=== PATIENT | male | born 1995 | race Caucasian/White ===

== ENCOUNTER 2024-04-28 22:54 | Emergency (ER) | payer MEDICAID ==
[~2024-04-28] VITALS: Ht 182.9 cm; Wt 63.5 kg
[2024-04-28 23:03] VITALS: BP 105/66; PULSE 96; RESP 20; TEMP 99.1; O2SAT 99
[2024-04-29 00:15] LABS: BASOPHILS % (AUTO) 0.3 % (0.0-2.0); HEMATOCRIT 44.9 % (36-52); HEMOGLOBIN 15.6 g/dL (12.0-18.0); LYMPHOCYTES # (AUTO) 0.8 K/uL (2.0-11.5); LYMPHOCYTES % (AUTO) 6.7 % (20.5-51.1); MEAN CORPUSCULAR HEMOGLOBIN 32 pg (27-31); MEAN CORPUSCULAR HGB CONC 35 g/dL (33-37); MEAN CORPUSCULAR VOLUME 90.4 fL (80-94); MONOCYTES # (AUTO) 0.6 K/uL (0.8-1.0); MONOCYTES % (AUTO) 5.1 % (1.7-9.3); NEUTROPHILS # (AUTO) 10.8 K/uL (1.8-7.7); NEUTROPHILS % (AUTO) 87.9 % (42.2-75.2); PLATELET COUNT (AUTO) 220 K/uL (140-450); RED BLOOD CELL COUNT(AUTO) 4.97 MIL/uL (4.20-6.10); RED CELL DISTRIBUTION WIDTH 12.9 % (11.6-13.7); WHITE BLOOD COUNT (AUTO) 12.3 K/uL (4.8-10.8)
[2024-04-29] MEDS: NACL 0.9% 2,000 ML IV ONE (00:18)
[2024-04-29] MEDS: ONDANSETRON 4 MG/2 ML VIAL IVP ONE (00:24)
[2024-04-29 00:31] LABS: ALBUMIN 4.5 g/dL (3.4-5.0); ANION GAP 18.1 (8-16); CALCIUM 9.9 mg/dL (8.5-10.1); CARBON DIOXIDE 22.9 mmol/L (21-32); CREATININE 1.1 mg/dL (0.6-1.3); TOTAL BILIRUBIN 0.9 mg/dL (0.0-1.0); TOTAL PROTEIN, SERUM 8.4 g/dL (6.4-8.2)
[2024-04-29 00:32] VITALS: O2SAT 98
[2024-04-29] MEDS: POTASSIUM CHLORIDE 10 MEQ TABER PO ONE (01:35)
[2024-04-29] MEDS: KETOROLAC 30 MG/ML VIAL IVP ONE (02:50)
[2024-04-29 03:58] LABS: APPEARANCE,URINE CLEAR (CLEAR); BILIRUBIN,URINE NEGATIVE (NEGATIVE); BLOOD, URINE NEGATIVE (NEGATIVE); COLOR,URINE YELLOW (YELLOW); LEUKOCYTE ESTERASE ,URINE NEGATIVE (NEGATIVE); NITRITE, URINE NEGATIVE (NEGATIVE); PROTEIN,URINE 1+ (NEGATIVE); UGLUCOSE NEGATIVE (NEGATIVE); UROBILINOGEN,URINE 0.2 EU/dL (0.2 - 1)
[2024-04-29] MEDS ORDERED: DICYCLOMINE HCL LIQUID 10 MG/5 ML UDC ONE (04:03)
[2024-04-29] MEDS ORDERED: ALUMINUM HYD/MAG/SIMETHICONE 30 ML UDC ONE (04:03)
[2024-04-29] MEDS: DICYCLOMINE HCL LIQUID 20 MG, ALUMINUM HYD/MAG/SIMETHICONE 30 ML, LIDOCAINE VISCOUS 2% ... PO ONE (04:06)
[2024-04-29] MEDS ORDERED: LOPE1TAB14 PO (04:21)
[2024-04-29] MEDS ORDERED: ONDA-188 SL (04:21)
[2024-04-29] MEDS ORDERED: ACET-10509 PO (04:22)
[2024-04-29] MEDS: FAMOTIDINE 20 MG/2 ML VIAL IVP ONE (04:24)
[2024-04-29 04:33] VITALS: BP 118/78; PULSE 79; RESP 18; TEMP 97.7; O2SAT 98
[2024-04-30] MEDS ORDERED: DICY20TA19 PO (06:45)
[2024-04-30] MEDS ORDERED: BISM262T5 PO (06:45)
[2024-04-30] MEDS ORDERED: NAPR-337 PO (07:28)
== END 2024-04-29 04:33 | disposition home or self-care (01) ==
LOC: MED 22:54
DX: R11.2 Nausea with vomiting, unspecified (principal); R19.7 Diarrhea, unspecified; M79.10 Myalgia, unspecified site; R10.84 Generalized abdominal pain; R51.9 Headache, unspecified; Z90.49 Acquired absence of other specified parts of digestive tract
CPT/HCPCS: 36415; 80053; 81003; 82948; 83690; 85025; 96361; 96374; 96375; 99284; J1885; J2405; J3490; J7030

== ENCOUNTER 2024-04-29 22:51 | Emergency (ER) | payer MEDICAID ==
[~2024-04-29] VITALS: Ht 182.9 cm; Wt 63.5 kg
[~2024-04-29 22:51] MED LIST: ACET-10509 PO; LOPE1TAB14 PO; ONDA-188 SL
[2024-04-29 23:01] VITALS: BP 110/70; PULSE 78; RESP 16; TEMP 98.5; O2SAT 100
[2024-04-30] MEDS: MORPHINE SULFATE 4 MG/ML SYR IVP ONE (00:21)
[2024-04-30] MEDS: ONDANSETRON 4 MG/2 ML VIAL IVP ONE (00:23)
[2024-04-30] MEDS: DEXT 5% /NACL 0.9% 1,000 ML IV ONE (00:29)
[2024-04-30 00:51] LABS: BASOPHILS % (AUTO) 0.5 % (0.0-2.0); EOSINOPHILS # (AUTO) 0.1 K/uL (0-0.4); EOSINOPHILS % (AUTO) 1.2 % (0.0-4.0); HEMATOCRIT 39.4 % (36-52); HEMOGLOBIN 13.6 g/dL (12.0-18.0); LYMPHOCYTES # (AUTO) 1.5 K/uL (2.0-11.5); LYMPHOCYTES % (AUTO) 19.3 % (20.5-51.1); MEAN CORPUSCULAR HEMOGLOBIN 32 pg (27-31); MEAN CORPUSCULAR HGB CONC 35 g/dL (33-37); MEAN CORPUSCULAR VOLUME 91.4 fL (80-94); MONOCYTES # (AUTO) 0.6 K/uL (0.8-1.0); MONOCYTES % (AUTO) 8.2 % (1.7-9.3); NEUTROPHILS # (AUTO) 5.5 K/uL (1.8-7.7); NEUTROPHILS % (AUTO) 70.8 % (42.2-75.2); PLATELET COUNT (AUTO) 185 K/uL (140-450); RED BLOOD CELL COUNT(AUTO) 4.32 MIL/uL (4.20-6.10); RED CELL DISTRIBUTION WIDTH 12.6 % (11.6-13.7); WHITE BLOOD COUNT (AUTO) 7.8 K/uL (4.8-10.8)
[2024-04-30 00:55] LABS: ANION GAP 18.3 (8-16); CALCIUM 9.3 mg/dL (8.5-10.1); CARBON DIOXIDE 21.1 mmol/L (21-32); CREATININE 0.9 mg/dL (0.6-1.3); POTASSIUM 3.4 mmol/L (3.5-5.1)
[2024-04-30 01:02] LABS: APPEARANCE,URINE CLEAR (CLEAR); BILIRUBIN,URINE 1+ (NEGATIVE); BLOOD, URINE TRACE-I (NEGATIVE); COLOR,URINE YELLOW (YELLOW); LEUKOCYTE ESTERASE ,URINE NEGATIVE (NEGATIVE); NITRITE, URINE NEGATIVE (NEGATIVE); PROTEIN,URINE TRACE (NEGATIVE); UGLUCOSE NEGATIVE (NEGATIVE); UROBILINOGEN,URINE 0.2 EU/dL (0.2 - 1)
[2024-04-30 01:05] LABS: ICTOTEST POSITIVE (NEGATIVE)
[2024-04-30 01:06] LABS: BACTERIA,URINE FEW /HPF (None Seen); MUCUS,URINE 1+ /LPF (None Seen); RBC,URINE 0-5 /HPF (0-5); SQUAMOUS EPITHELIAL CELL,UR 0-3 (FEW) /LPF (0-3 (FEW)); WBC,URINE 0-5 /HPF (0-5)
[2024-04-30 01:18] LABS: ALBUMIN 3.9 g/dL (3.4-5.0); BILIRUBIN,DIRECT 0.1 mg/dL (0.0-0.3); TOTAL BILIRUBIN 0.4 mg/dL (0.0-1.0); TOTAL PROTEIN, SERUM 7.3 g/dL (6.4-8.2)
[2024-04-30] MEDS: KETOROLAC 30 MG/ML VIAL IVP ONE (01:53)
[2024-04-30 06:32] VITALS: BP 100/56; PULSE 73; RESP 16; O2SAT 98
[2024-04-30] MEDS ORDERED: BISM262T5 PO (06:45)
[2024-04-30] MEDS ORDERED: DICY20TA19 PO (06:45)
[2024-04-30] MEDS ORDERED: ONDANSETRON 4 MG ODT ONE (07:02)
[2024-04-30] MEDS: ONDANSETRON 4 MG ODT PO ONE (07:04)
[2024-04-30] MEDS ORDERED: NAPR-337 PO (07:28)
== END 2024-04-30 07:14 | disposition home or self-care (01) ==
LOC: MED 22:51
DX: A08.4 Viral intestinal infection, unspecified (principal); E86.0 Dehydration; J45.909 Unspecified asthma, uncomplicated; Z90.49 Acquired absence of other specified parts of digestive tract; Z79.899 Other long term (current) drug therapy
CPT/HCPCS: 36415; 74178; 76870; 80048; 80076; 81001; 83605; 83690; 85025; 87040; 87045; 87427; 96361; 96374; 96375; 99285; J1885; J2270; J2405; Q0092; Q0162; Q9967